=== PATIENT | female | born 1995 ===

== ENCOUNTER → 2018-10-11 | Outpatient (CLI) | payer SELFPAY | LOC: LAB SHORT 17:50 → LAB 17:50 | PROVIDERS: Registered Nurse Community Health | DX: Z01.419 Encounter for gynecological examination (general) (routine) without abnormal findings (principal) | CPT/HCPCS: G0123 ==

== ENCOUNTER → 2022-01-27 | Outpatient (CLI) | payer BC | LOC: LAB SHORT 10:00 | DX: N91.2 Amenorrhea, unspecified (principal) | CPT/HCPCS: 84702 ==

== ENCOUNTER → 2022-08-12 | Outpatient (CLI) | payer BC ==
[2022-08-12 14:31] LABS: Hematocrit 40.4 % (33.0-51.0); Hemoglobin 13.5 g/dL (11.5-16.0)
[2022-08-12 19:25] LABS: Follicle Stimulating Hormone 1.2 mIU/ml; Free Thyroxine 1.04 ng/dL (0.70-1.60); Luteinizing Hormone 0.3 mIU/ml; Thyroid Stimulating Hormone 2.02 uIU/mL (0.360-4.800); Triiodothyronine, Free 2.55 pg/mL (2.18-3.98)
== END | disposition home or self-care (01) ==
LOC: LAB 13:17 → LAB SHORT 13:17
PROVIDERS: Registered Nurse Community Health
DX: N91.2 Amenorrhea, unspecified (principal)
CPT/HCPCS: 83001; 83002; 84439; 84443; 84481; 85014; 85018

== ENCOUNTER → 2023-06-10 | Outpatient (CLI) | payer SELFPAY | END | disposition home or self-care (01) | LOC: LAB SHORT 13:42 → LAB 13:42 | PROVIDERS: Advanced Practice Midwife | DX: Z01.419 Encounter for gynecological examination (general) (routine) without abnormal findings (principal) | CPT/HCPCS: G0145 ==

== ENCOUNTER → 2024-06-01 | Outpatient (CLI) | payer BC ==
[2024-06-01 19:17] LABS: Bacterial Vaginosis PCR Negative (NEGATIVE); Candida Group, PCR NOT DETECTED (NOT DETECT); Candida glabrata-krusei, PCR NOT DETECTED (NOT DETECT)
[2024-06-01 19:49] LABS: Chlamydia Trachomatis Cervix NOT DETECTED (NOT DETECT); Neisseria Gonorrhoea Cervix NOT DETECTED (NOT DETECT)
== END ==
LOC: LAB 16:14 → LAB SHORT 16:14
PROVIDERS: Chiropractor
DX: Z20.2 Contact with and (suspected) exposure to infections with a predominantly sexual mode of transmission (principal)
CPT/HCPCS: 87481; 87491; 87591; 87661; 87801

== ENCOUNTER → 2025-01-25 | Outpatient (CLI) | payer BC ==
[2025-01-25 17:17] LABS: Source, Urine Voided
[2025-01-25 18:11] LABS: Red Blood Cells, Urine 0-2 /hpf (0-2); White Blood Cells, Urine 0-2 /hpf (0-5)
[2025-01-25 18:24] LABS: U Amphetamine Screen Not Detected; U Barbituate Screen Not Detected; U Benzodiazapine Screen Not Detected; U Buprenorphine Screen Not Detected; U Cannabinoids Screen Not Detected; U Cocaine Screen Not Detected; U Methadone Screen Not Detected; U Methamphetamine Screen Not Detected; U Opiates Screen Not Detected; U Oxycodone Screen Not Detected; U Phencyclidine Screen Not Detected
== END ==
LOC: LAB SHORT 17:15 → LAB 17:15
PROVIDERS: Advanced Practice Midwife
DX: Z34.01 Encounter for supervision of normal first pregnancy, first trimester (principal)
CPT/HCPCS: 81015; 87086

== ENCOUNTER → 2025-02-08 | Outpatient (CLI) | payer BC ==
[2025-02-10 03:05] LABS: APTIMA MEDIA TYPE Urine; C. TRACHOMATIS BY TMA Negative (Negative); N. GONORRHOEAE BY TMA Negative (Negative)
== END ==
LOC: LAB 15:10 → LAB SHORT 15:10
PROVIDERS: Advanced Practice Midwife
DX: Z11.3 Encounter for screening for infections with a predominantly sexual mode of transmission (principal)
CPT/HCPCS: 87491; 87591

== ENCOUNTER → 2025-07-24 | Outpatient (CLI) | payer BC ==
[~2025-07-24] MED LIST: PRENATAL TABLE1 EAC2 PO
== END | disposition home or self-care (01) ==
LOC: LAB 10:57 → LAB SHORT 10:57
DX: Z34.93 Encounter for supervision of normal pregnancy, unspecified, third trimester (principal); Z3A.00 Weeks of gestation of pregnancy not specified
CPT/HCPCS: 87081; 87150